=== PATIENT | female | born 1990 | race Two or more races ===

== ENCOUNTER 2017-09-14 14:51 | Emergency (ER) | payer MEDICAID ==
[~2017-09-14] VITALS: Ht 152.4 cm; Wt 61.2 kg
[2017-09-14 14:57] VITALS: BP 106/56
[2017-09-14 17:16] LABS: Urine Bacteria FEW /hpf (None Seen); Urine Blood Negative /uL (Negative); Urine Specific Gravity 1.013 (1.001-1.035); Urine WBC 1 /hpf (0 - 5)
== END 2017-09-14 17:48 | disposition home or self-care (01) ==
LOC: ER 14:53
DX: S39.012A Strain of muscle, fascia and tendon of lower back, initial encounter (principal); Z87.440 Personal history of urinary (tract) infections; X58.XXXA Exposure to other specified factors, initial encounter; Y93.89 Activity, other specified; Y92.89 Other specified places as the place of occurrence of the external cause; Y99.8 Other external cause status
CPT/HCPCS: 81001; 81025

== ENCOUNTER 2017-10-22 21:23 | Emergency (ER) | payer MEDICAID ==
[~2017-10-22] VITALS: Ht 149.9 cm; Wt 61.2 kg
[2017-10-22 21:39] VITALS: BP 117/75
[2017-10-22] MEDS ORDERED: SODIUM CHLORIDE 0.9% 1,000 ML IV ONE (21:45)
[2017-10-22 21:56] LABS: Basophils # (auto) 0 uL; Basophils % (auto) 0.2 % (0.0-2.0); Eosinophils # (auto) 0 uL; Eosinophils % (auto) 0.1 % (0.0-7.0); Hematocrit 41.3 % (36.0-46.0); Hemoglobin 13.8 g/dL (12.2-16.2); Lymphocytes # (auto) 1.3 uL; Lymphocytes % (auto) 9.9 % (10.0-50.0); Mean Corpuscular Hemoglobin 31.1 pg (28.0-32.0); Mean Corpuscular Hgb Conc. 33.5 g/dL (32.0-36.0); Mean Corpuscular Volume 92.9 fL (80.0-100.0); Monocytes # (auto) 0.3 uL; Monocytes % (auto) 2.2 % (0.0-12.0); Neutrophils # (auto) 11.5 uL; Neutrophils % (auto) 87.6 % (37.0-80.0); Platelet Count (auto) 230 10^3/uL (140-450); Red Blood Cells 4.45 10^6/uL (4.0-5.20); Red Cell Distribution Width 12.9 % (11.8-14.3); White Blood Cell 13.1 10^3/uL (4.4-10.8)
[2017-10-22 22:16] LABS: Albumin 4.1 g/dL (3.4-5.0); BUN/Creatinine Ratio 23.9; Potassium 4.3 mmol/L (3.5-5.1)
[2017-10-22 22:19] LABS: Bilirubin, Total 0.3 mg/dL (0.2-1.0); Total Protein 7.6 g/dL (6.4-8.2)
== END 2017-10-22 22:33 | disposition home or self-care (01) ==
LOC: EDBD 21:23 → ER 21:23
DX: F10.10 Alcohol abuse, uncomplicated (principal); Z53.21 Procedure and treatment not carried out due to patient leaving prior to being seen by health care provider
CPT/HCPCS: 36415; 80053; 80320; 85025